=== PATIENT | female | born 1985 | race Caucasian/White ===

== ENCOUNTER 2022-06-30 11:05 | Emergency (ER) | payer OTHER ==
[~2022-06-30] VITALS: Ht 167.6 cm; Wt 73.0 kg
[2022-06-30] MEDS ORDERED: SODIUM CHLORIDE 0.9% 1,000 ML IV ONE (11:15)
[2022-06-30] MEDS ORDERED: ONDANSETRON HCL 4MG/2ML INJ IV ONE (11:15)
[2022-06-30] MEDS ORDERED: FAMOTIDINE 20MG/2ML VIAL IV ONE (11:15)
[2022-06-30] MEDS ORDERED: METHYLPREDNISOLONE SOD SUCC 125 MG/2 ML VIAL IV ONE (11:15)
[2022-06-30 11:52] LABS: BASOPHILS % 0.2 % (0.0-2.0); EOSINOPHILS % 0.9 % (0.0-5.0); HEMATOCRIT. 42.7 % (36.0-48.0); HEMOGLOBIN. 13.4 g/dL (12.0-16.0); LYMPHOCYTES % 36.1 % (20.0-50.0); MEAN CORPUSCULAR HEMOGLOBIN 22.1 pg (28.0-32.0); MEAN CORPUSCULAR VOLUME 70.6 fL (81.0-99.0); MEAN PLATELET VOLUME 8.4 fl (7.4-10.4); MONOCYTES % 5.1 % (2.0-8.0); NEUTROPHILS % 57.7 % (40.0-76.0); PLATELET 359 x1000/uL (130-400); RED BLOOD CELL COUNT 6.05 mill/uL (4.2-5.4); RED CELL DISTRIBUTION WIDTH 15.9 % (11.6-14.6)
[2022-06-30 11:56] LABS: CHLORIDE 108 mEq/L (98-107)
[2022-06-30 12:10] LABS: HCG SCREEN NEGATIVE; MONOTEST NEGATIVE (NEGATIVE)
[2022-06-30] MEDS ORDERED: DIPH25TA62 MT (12:58)
[2022-06-30] MEDS ORDERED: FAMO-135 MT (12:58)
[2022-06-30] MEDS ORDERED: AMOX1TAB16 MT (12:58)
[2022-06-30] MEDS ORDERED: ONDA4TAB50 MT (12:58)
[2022-06-30] MEDS ORDERED: EPIN0.3P3 IM (12:58)
[2022-06-30] MEDS ORDERED: ALBU6.7H3 INH (12:58)
[2022-06-30 13:05] VITALS: BP 131/70
== END 2022-06-30 13:30 | disposition home or self-care (01) ==
LOC: ER 11:05
DX: T78.2XXA Anaphylactic shock, unspecified, initial encounter (principal); E11.65 Type 2 diabetes mellitus with hyperglycemia; J18.9 Pneumonia, unspecified organism; Z00.00 Encounter for general adult medical examination without abnormal findings; Z88.1 Allergy status to other antibiotic agents
CPT/HCPCS: 36415; 71045; 80053; 83880; 84484; 84703; 85025; 86308; 87070; 87430; 93005; 96361; 96374; 96375; 99285; J2405; J2930; J3490; J7030; Z7610